=== PATIENT | female | born 1955 | race African-American/Black ===

== ENCOUNTER 2021-05-11 15:09 | Emergency (ER) | payer MEDICARE ==
[~2021-05-11] VITALS: Ht 162.6 cm; Wt 66.0 kg
[2021-05-11 15:23] VITALS: BP 117/72
== END 2021-05-11 18:18 | disposition left against medical advice (07) ==
LOC: ER 15:09
DX: Z53.21 Procedure and treatment not carried out due to patient leaving prior to being seen by health care provider (principal)

== ENCOUNTER 2024-01-07 05:48 | Emergency (ER) | payer MEDICAID, BC ==
[~2024-01-07] VITALS: Ht 165.1 cm; Wt 64.0 kg
[2024-01-07 06:05] VITALS: O2SAT 98
[2024-01-07] MEDS: ACETAMINOPHEN 325MG TABLET PO ONE (06:50)
[2024-01-07] MEDS: IBUPROFEN 400MG TABLET PO ONE (06:50)
[2024-01-07] MEDS: LIDOCAINE 5% PATCH TOP STA (06:50)
[2024-01-07] MEDS: GABAPENTIN 300MG CAPSULE PO ONE (08:01)
[2024-01-07] MEDS ORDERED: IBUP-2028 MT (08:50)
[2024-01-07] MEDS ORDERED: TOPUD PO (08:50)
[2024-01-07] MEDS ORDERED: LIDO1ADH23 TP (08:51)
[2024-01-07] MEDS ORDERED: GABA-529 MT (08:51)
[2024-01-07 09:14] VITALS: BP 155/76; PULSE 73; RESP 20; TEMP 98.3
== END 2024-01-07 09:38 | disposition home or self-care (01) ==
LOC: ER 05:48
DX: M25.551 Pain in right hip (principal); E11.42 Type 2 diabetes mellitus with diabetic polyneuropathy; Z88.6 Allergy status to analgesic agent; E11.9 Type 2 diabetes mellitus without complications; J45.909 Unspecified asthma, uncomplicated; Z98.890 Other specified postprocedural states
CPT/HCPCS: 73502; 82962; 99284